=== PATIENT | male | born 1990 | race Caucasian/White ===

== ENCOUNTER 2019-03-08 10:56 | Outpatient (RCR) | payer MEDICARE, MEDICAID, SELFPAY | END 2019-04-02 00:01 | LOC: TPO 10:56 | PROVIDERS: Family Provider Nurse Practitioner; Visit Provider Nurse Practitioner | DX: G80.8 Other cerebral palsy (principal) | CPT/HCPCS: 97162; 97165 ==

== ENCOUNTER → 2019-04-24 13:36 | Outpatient (BNVA) | payer MEDICARE, MEDICAID, SELFPAY | PROVIDERS: Family Provider Nurse Practitioner; PCP Nurse Practitioner; Visit Provider Psychiatry & Neurology Neurology | DX: G80.1 Spastic diplegic cerebral palsy (principal) | CPT/HCPCS: 99212 ==

== ENCOUNTER → 2019-10-23 09:51 | Outpatient (BNVA) | payer MEDICARE, MEDICAID, SELFPAY | PROVIDERS: Family Provider Nurse Practitioner; PCP Nurse Practitioner; Visit Provider Nurse Practitioner | DX: E53.8 Deficiency of other specified B group vitamins (principal); F43.12 Post-traumatic stress disorder, chronic | CPT/HCPCS: 80053; 82607; 85025 ==

== ENCOUNTER → 2020-06-11 10:56 | Outpatient (BNVA) | payer MEDICARE, MEDICAID, SELFPAY | PROVIDERS: Family Provider Nurse Practitioner; PCP Nurse Practitioner; Visit Provider Nurse Practitioner | DX: R00.2 Palpitations (principal); E53.8 Deficiency of other specified B group vitamins; G80.8 Other cerebral palsy; J30.1 Allergic rhinitis due to pollen; M81.0 Age-related osteoporosis without current pathological fracture; K59.01 Slow transit constipation; H61.23 Impacted cerumen, bilateral | CPT/HCPCS: 80053; 81000; 84443; 85025 ==

== ENCOUNTER → 2020-07-07 11:47 | Outpatient (BNVA) | payer MEDICARE, MEDICAID, SELFPAY | PROVIDERS: Family Provider Nurse Practitioner; PCP Nurse Practitioner; Visit Provider Nurse Practitioner Family | DX: L72.9 Follicular cyst of the skin and subcutaneous tissue, unspecified (principal) | CPT/HCPCS: 87070; 87075; 87205 ==

== ENCOUNTER → 2020-10-27 09:04 | Outpatient (BNVA) | payer MEDICARE, MEDICAID, SELFPAY | PROVIDERS: Family Provider Nurse Practitioner; PCP Nurse Practitioner; Visit Provider Nurse Practitioner | DX: E53.8 Deficiency of other specified B group vitamins (principal); Z13.6 Encounter for screening for cardiovascular disorders; G80.8 Other cerebral palsy; M81.0 Age-related osteoporosis without current pathological fracture; J30.1 Allergic rhinitis due to pollen; H61.23 Impacted cerumen, bilateral; K59.01 Slow transit constipation; Z11.1 Encounter for screening for respiratory tuberculosis; R32 Unspecified urinary incontinence | CPT/HCPCS: 80053; 80061; 82607; 84443; 85025; 86580 ==

== ENCOUNTER → 2020-10-29 09:34 | Outpatient (BNVA) | payer MEDICARE, MEDICAID, SELFPAY | PROVIDERS: Family Provider Nurse Practitioner; PCP Nurse Practitioner; Visit Provider Nurse Practitioner | DX: G80.9 Cerebral palsy, unspecified (principal) | CPT/HCPCS: 99213 ==

== ENCOUNTER 2021-01-26 18:06 | Emergency (ER) | payer MEDICARE, MEDICAID, SELFPAY ==
[2021-01-26 18:22] VITALS: BP 130/91; PULSE 104; RESP 19; TEMP 36.9; O2SAT 95; BMI 22.3
--- NOTE | 2021-01-26 18:30 | XRR_ITS ---
PROCEDURE INFORMATION: Exam: XR Right Knee Exam date and time: 01/26/2021 6:30 PM Age: 30 years old Clinical indication: Injury or trauma; Fall; Dislocation; Patella or knee; Injury date: 01/26/2021; Injury details: Transferring and right leg got caught TECHNIQUE: Imaging protocol: XR Right knee. Views: 1 or 2 views. COMPARISON: No relevant prior studies available. FINDINGS: Bones/joints: Lateral dislocation of the patella. Osseous structures are intact without evidence of fracture. Soft tissues: Normal. XR/XR knee RT 1-2V 04691 IMPRESSION: Lateral dislocation of the patella. Radiation Dose CTDIVOL = (mGy): DLP = (mGy-cm)
--- NOTE | 2021-01-26 18:49 | W.ED.EXTPRO ---
HPI - Extremity Problem General: Chief complaint: Extremity Injury, Lower Stated complaint: KNEE DISLOCATION Time Seen by Provider: 01/26/21 18:25 Source: EMS and other Mode of arrival: EMS Limitations: altered mental status History of Present Illness: HPI Narrative: 30-year-old male with history of cerebral palsy who is here with caregiver states he was transferring him in the bed and patient started having pain and pointing to his knee he does have a patellar dislocation to his right knee patient's not ambulatory due to spasticity with his CP patient is nonverbal no history is available from patient patient had no fall or any other injuries per caregiver Review of Systems General: Reports: ROS unobtainable due to mental status PFSH ED PFSH: Medical History Cerebral palsy Cerebral palsy, quadriplegic Dependence on care provider Incontinence Mental disability Osteoporosis Seasonal allergic rhinitis due to pollen Slow transit constipation Vitamin B12 deficiency Wheelchair dependence Surgical History History of release of tendon Wrist and ankles caregiver unsure date Family History Other Unknown family medical history Social History Smoking and tobacco status: never smoked Second hand smoke exposure: No Smoking risk assessment/counseling performed?: No Alcohol intake: never Desire information about alcohol rehabilitation?: No Counseling given: No Desire information about substance/drug rehabilitation?: No Counseling given: No Caregiver/support person: Yes Lives independently: No (Wheel Chair) Household members: other Housing: House Marital status: Single Number of children: 0 Number of grandchildren: 0 service: No Current occupational status: disabled History of recent travel: No Sexually active: No Current gender identity: Male Physical Exam Const: COMMON NORMALS: no acute distress; negative for patient oriented x3 HENMT: COMMON NORMALS: normocephalic and atraumatic HEAD & SCALP: normocephalic and atraumatic Eye: COMMON NORMALS: Equal, round and reactive pupils present and EOMs intact bilaterally PUPIL: Yes Equal, round and reactive pupils present Neck/C-Spine: COMMON NORMALS: full ROM and supple Chest: COMMONS NORMALS: normal inspection of the chest and normal palpation of entire chest wall Resp: COMMON NORMALS: normal respiratory effort, No retractions, No use of accessory muscles and clear to auscultation bilaterally AUSCULTATION: clear to auscultation bilaterally Cardio: COMMON NORMALS: regular rate, regular rhythm and No murmurs present (Cardio) RATE: regular rate RHYTHM: regular rhythm GI: COMMON NORMALS: Normal to inspection, nondistended, normoactive bowel sounds present, Soft to palpation, non-tender and no masses PALPATION: Yes Soft to palpation Extremity: COMMON NORMALS: full ROM NARRATIVE EXTREMITY EXAM: Patella dislocation to right knee distal pulses intact patient does have spasticity in his extremities from his cerebral palsy Neuro: COMMON NORMALS: no focal motor deficits; negative for patient oriented x3 Psych: COMMON NORMALS: cooperative; negative for mental status grossly normal and negative for Normal thought process present THOUGHT PROCESS: abnormal Skin: COMMON NORMALS: no rashes or lesions noted and no wounds GENERAL SKIN EXAM: no rashes or lesions noted Procedures Orthopedic Joint Reduction Joint #1: Time Out Performed: Yes Side: right Joint Reduction Location: knee/patella Technique used: traction/counter-traction Post-reduction neuro exam: intact Post-reduction vascular: intact Post Reduction X-Ray Obtained: Yes Post Reduction X-Ray Results: reduced Splint Applied: No Patient Tolerated Procedure: well Course Vital Signs: Vital signs: Vital Signs Temperature 98.4 F 01/26/21 18:22 Pulse Rate 104 H 01/26/21 18:22 Respiratory Rate 19 H 01/26/21 18:22 Blood Pressure 130/91 01/26/21 18:22 Pulse Oximetry 95 01/26/21 18:22 MDM - Extremity (Nontraumatic) MDM Narrative: Medical decision making narrative: Patient presents with a patella dislocation I relocated in the ER. He has a knee brace at home that he is to wear. We will give him Ortho PDX follow-up he is stable for discharge. Discharge Plan Discharge Patient Disposition: Home Clinical Impression: Closed dislocation of patella Qualifiers: Encounter type: initial encounter Laterality: right Qualified Code(s): S83.004A - Unspecified dislocation of right patella, initial encounter Condition: Stable Prescriptions: No Action (DME) Support stander repair See Rx Instructions .Route .MEDSUPPLY Qty: 1 RF: 0 baclofen 10 mg tablet See Rx Instructions PO .am Qty: 60 RF: 5 calcium carbonate-vitamin D3 [Oyster Shell Calcium-Vit D3] 500 mg(1,250mg) -200 unit tablet 1 tab PO BID Qty: 60 RF: 5 cyanocobalamin (vitamin B-12) 1,000 mcg/mL solution 1,000 mcg IM .Monthly Qty: 1 RF: 5 famotidine [Pepcid] 20 mg tablet 20 mg PO BID Qty: 60 RF: 5 guaifenesin [Mucinex] 600 mg tablet extended release 12hr 600 mg PO BID PRN (Reason: congestion) Qty: 60 RF: 5 loratadine 10 mg tablet 10 mg PO QDAY Qty: 30 RF: 5 magnesium hydroxide [Milk of Magnesia] 400 mg/5 mL suspension 30 ml PO BID PRN (Reason: constipation) Qty: 450 RF: 5 mineral oil Oil See Rx Instructions .ROUTE .COMPLEX Qty: 1 RF: 5 polyethylene glycol 3350 [Miralax] 17 gram/dose powder 17 g PO DAILY Qty: 510 RF: 5 simethicone 80 mg tablet,chewable 80 mg PO BID Qty: 60 RF: 5 trazodone 50 mg tablet 50 mg PO .at bedtime Qty: 30 RF: 5 (DME) wheelchair/ stroller See Rx Instructions .Route .MEDSUPPLY Qty: 1 RF: 0 acetaminophen [Mapap (acetaminophen)] 325 mg tablet 325 mg PO QID PRN (Reason: pain) Qty: 30 RF: 5 triamcinolone acetonide 0.1 % ointment 1 applic TOPICAL BID 14 Days Qty: 80 RF: 0 (DME) arm brace Misc See Rx Instructions .ROUTE .MEDSUPPLY Qty: 1 RF: 0 (DME) leg brace Misc See Rx Instructions .ROUTE .MEDSUPPLY Qty: 1 RF: 0 Discharge Orders: Discharge ED (Routine); Ordered 01/26/21 Ordered By: Natalia Saravia Referrals: Noemi Chao, [employer] [Primary Care Provider] - Tom Schilling MD [Physician] - 1-3 days Discharge Diet: Advance as tolerated Discharge Activity: Resume usual activity Patient Instructions: Patellar Dislocation (ED) Coding Level of Care Code ED Service Order Dispatcher Chief for Chg Fwd Exam Comprehensive
[2021-01-26] MEDS: LORazepam 2 mg/mL INJ 1 mL 1 MG IM (19:02)
[2021-01-26] MEDS: morphine 4 mg/mL SDV 1 mL IM (19:03)
--- NOTE | 2021-01-26 19:27 | XRR_ITS ---
PROCEDURE INFORMATION: Exam: XR Right Knee Exam date and time: 01/26/2021 7:27 PM Age: 30 years old Clinical indication: Screening exam; RT knee post reduction TECHNIQUE: Imaging protocol: XR Right knee. Views: 1 or 2 views. COMPARISON: CR (LOW EXM, ) 01/26/2021 6:47 PM FINDINGS: Bones/joints: Relocation of the patella within the trochlear groove. No evidence of fracture. Soft tissues: Normal. XR/XR knee RT 1-2V 11037 IMPRESSION: Successful relocation of the patella within the trochlear groove. Radiation Dose CTDIVOL = (mGy): DLP = (mGy-cm)
[2021-01-26 19:29] VITALS: PULSE 80
[2021-01-26 20:06] VITALS: BP 112/77; PULSE 82; RESP 18; O2SAT 99
--- NOTE | 2021-01-26 20:17 | PC.NURSE ---
RIGHT KNEE DISLOCATION REDUCED BY DR HERNANDEZ WITHOUT INCIDENT. CMS INTACT FOLLOWING PROCEDURE.
--- NOTE | 2021-01-27 08:54 | DCPLANNER ---
manager service desk had message to schedule to a follow up appointment for patient with ortho. manager service desk called the ortho clinic, spoke with Tracy, gave clinic patients information. manager service desk was told that patients information would be printed and reviewed. Clinic will call patient with appointment information.
--- NOTE | 2021-02-03 15:29 | DCPLANNER ---
Patient had a follow up appointment scheduled for 01.28.21 with PALMA Birch at [facility] - patient did attend appointment.
== END 2021-01-26 20:10 | disposition home or self-care (01) ==
PROVIDERS: Emergency Provider Emergency Medicine; PCP Nurse Practitioner
DX: S83.004A Unspecified dislocation of right patella, initial encounter (principal); G80.8 Other cerebral palsy; Z99.3 Dependence on wheelchair; Z74.9 Problem related to care provider dependency, unspecified; F79 Unspecified intellectual disabilities
CPT/HCPCS: 27560; 73560; 96372; 99283; J2060; J2270

== ENCOUNTER → 2021-01-28 13:50 | Outpatient (BNVA) | payer MEDICARE, MEDICAID, SELFPAY | PROVIDERS: PCP Nurse Practitioner; Referring Provider Emergency Medicine; Visit Provider Physician Assistant | DX: S83.004A Unspecified dislocation of right patella, initial encounter (principal); X58.XXXA Exposure to other specified factors, initial encounter; M25.461 Effusion, right knee | CPT/HCPCS: 73560 ==

== ENCOUNTER → 2021-07-29 10:28 | Outpatient (BNVA) | payer MEDICARE, MEDICAID, SELFPAY | PROVIDERS: PCP Nurse Practitioner; Visit Provider Nurse Practitioner | DX: Z13.6 Encounter for screening for cardiovascular disorders (principal); E53.8 Deficiency of other specified B group vitamins; M81.0 Age-related osteoporosis without current pathological fracture; G80.8 Other cerebral palsy; J30.1 Allergic rhinitis due to pollen; H61.23 Impacted cerumen, bilateral; G80.9 Cerebral palsy, unspecified; K59.01 Slow transit constipation | CPT/HCPCS: 80053; 80061; 82607; 85025 ==

== ENCOUNTER → 2021-11-08 12:44 | Outpatient (BNVA) | payer MEDICARE, MEDICAID, SELFPAY | PROVIDERS: PCP Nurse Practitioner; Visit Provider Nurse Practitioner | DX: G80.9 Cerebral palsy, unspecified (principal) | CPT/HCPCS: 99212; 99213 ==

== ENCOUNTER → 2022-05-20 10:41 | Outpatient (BNVA) | payer MEDICARE, MEDICAID, SELFPAY | PROVIDERS: PCP Nurse Practitioner; Visit Provider Nurse Practitioner | DX: E53.8 Deficiency of other specified B group vitamins (principal); E55.9 Vitamin D deficiency, unspecified; R00.2 Palpitations; G80.8 Other cerebral palsy; Z13.6 Encounter for screening for cardiovascular disorders; J30.1 Allergic rhinitis due to pollen; M81.0 Age-related osteoporosis without current pathological fracture; K59.01 Slow transit constipation; H61.23 Impacted cerumen, bilateral | CPT/HCPCS: 80053; 80061; 82306; 82607; 84443; 85025 ==

== ENCOUNTER → 2022-11-11 10:57 | Outpatient (BNVA) | payer MEDICARE, MEDICAID, SELFPAY | PROVIDERS: PCP Nurse Practitioner; Visit Provider Nurse Practitioner | DX: E53.8 Deficiency of other specified B group vitamins (principal) | CPT/HCPCS: 80053; 82607; 85025 ==

== ENCOUNTER → 2023-05-03 11:40 | Outpatient (BNVA) | payer MEDICARE, MEDICAID, SELFPAY | PROVIDERS: PCP Nurse Practitioner; Visit Provider Nurse Practitioner | DX: Z13.6 Encounter for screening for cardiovascular disorders (principal); E53.8 Deficiency of other specified B group vitamins; R00.2 Palpitations | CPT/HCPCS: 80053; 80061; 82607; 84443 ==

== ENCOUNTER → 2023-09-12 07:54 | Outpatient (BNVA) | payer MEDICARE, MEDICAID, SELFPAY | PROVIDERS: PCP Nurse Practitioner; Visit Provider Psychiatry & Neurology Neurology | DX: G80.8 Other cerebral palsy (principal); E53.8 Deficiency of other specified B group vitamins | CPT/HCPCS: 99202 ==

== ENCOUNTER → 2023-10-25 10:35 | Outpatient (BNVA) | payer MEDICARE, MEDICAID, SELFPAY | PROVIDERS: PCP Nurse Practitioner; Visit Provider Nurse Practitioner | DX: E55.9 Vitamin D deficiency, unspecified (principal); E53.8 Deficiency of other specified B group vitamins | CPT/HCPCS: 80053; 82306; 82607; 85025 ==

== ENCOUNTER → 2024-09-10 12:45 | Outpatient (BNVA) | payer MEDICARE, MEDICAID, SELFPAY | PROVIDERS: PCP Nurse Practitioner; Visit Provider Psychiatry & Neurology Neurology | DX: G80.8 Other cerebral palsy (principal); R01.1 Cardiac murmur, unspecified; H61.22 Impacted cerumen, left ear; R29.90 Unspecified symptoms and signs involving the nervous system | CPT/HCPCS: 99212 ==

== ENCOUNTER 2024-09-17 09:02 | Outpatient (CLI) | payer MEDICARE, MEDICAID, SELFPAY ==
--- NOTE | 2024-09-17 09:13 | XRR_ITS ---
PROCEDURE INFORMATION: Exam: XR Chest Exam date and time: 09/17/2024 9:49 AM Age: 33 years old Clinical indication: Cough; Choked on food; Additional info: R05.9 - cough, unspecified TECHNIQUE: Imaging protocol: Radiologic exam of the chest. Views: 2 views. COMPARISON: No relevant prior studies available. FINDINGS: Lungs: Small amount of atelectasis and/or pneumonitis left lung base. No other obvious pulmonary abnormalities. Pleural spaces: Unremarkable. No pleural effusion. No pneumothorax. Heart/Mediastinum: Most of the mediastinum projects to the right of midline. This is very likely due to patient rotation. Normal heart size. Diaphragm: Mild elevation of the left hemidiaphragm. Bones/joints: Moderate kyphosis. Moderate scoliosis. Gracile bones. Otherwise, unremarkable. XR/XR chest 2V* [id number] IMPRESSION: 1. Small amount of atelectasis and/or pneumonitis left lung base. 2. Most of the mediastinum projects to the right of midline. This is very likely due to patient rotation. 3. Additional details as above.
[2024-09-17 09:33] LABS: Basophils # 0.1 10^3/uL (0.0-0.1); Basophils % 0.9 %; Eosinophils # 0.2 10^3/uL (0.0-0.8); Eosinophils % 3.2 %; Hematocrit 46.4 % (37-53); Lymphocytes # 1.5 10^3/uL (0.8-4.8); Lymphocytes % 22.1 %; Mean Corpuscular HGB Conc 34.9 g/dL (30-55); Mean Corpuscular Hemoglobin 29.8 pg (27-33); Mean Corpuscular Volume 85.5 fl (82-101); Monocytes # 0.6 10^3/uL (0.2-0.9); Monocytes % 8.5 %; Neutrophils # 4.53 10^3/uL (1.8-7.7); Neutrophils % 64.9 %; Nucleated Red Blood Cells % 0 %; Platelet Count 218 10^3/cmm (157-399); Red Blood Count 5.43 10^6/uL (3.85-5.65); Red Cell Distribution Width 12.3 % (12.1-15.1); White Blood Count 6.97 10^3/uL (3.29-11.43)
[2024-09-17 10:00] LABS: Alanine Aminotransferase 32 U/L (0-41); Albumin Level 4.3 g/dL (3.5-5.2); Alkaline Phosphatase 123 U/L (40-130); Anion Gap 16.4 (5-19); Aspartate Amino Transferase 23 U/L (0-40); Blood Urea Nitrogen 10 mg/dL (6-20); Calcium 9.6 mg/dL (8.5-10.5); Carbon Dioxide 26 mmol/L (22-29); Chloride 102 mmol/L (98-107); Chol HDL Ratio 3.31 mg/dL (1.0-5.00); Cholesterol 139 mg/dL (0-200); Globulin 3.4 g/dL (1.3-4.6); Glucose 202 mg/dL (65-115); HDL Cholesterol 42 mg/dL (60-100); LDL Cholesterol Calculated 65 mg/dL (50-129); Osmolality Calculated 297 mOsm/kg (285-295); Potassium 3.4 mmol/L (3.5-5.1); Sodium 141 mmol/L (136-145); Total Protein 7.7 g/dL (6.6-8.7); Triglycerides 161 mg/dL (0-150); VLDL Cholestrol Calculation 32 mg/dL (0-30)
[2024-09-17 11:38] LABS: Total Bilirubin 1.2 mg/dL (0.15-1.2)
[2024-09-17 11:49] LABS: 25 Hydroxy Vitamin D 37 ng/mL (30-100); Vitamin B12 969 pg/mL (232-1245)
[2024-09-18 10:24] LABS: Estmated Average Glucose 108; Hemoglobin A1C 5.4 % (4.0-6.0)
== END 2024-09-17 09:03 | disposition home or self-care (01) ==
LOC: LAB 09:09
PROVIDERS: PCP Nurse Practitioner; Visit Provider Nurse Practitioner
DX: R05.9 Cough, unspecified (principal); Z13.6 Encounter for screening for cardiovascular disorders; E55.9 Vitamin D deficiency, unspecified; E53.8 Deficiency of other specified B group vitamins; R73.9 Hyperglycemia, unspecified; R91.8 Other nonspecific abnormal finding of lung field; M41.84 Other forms of scoliosis, thoracic region; R93.7 Abnormal findings on diagnostic imaging of other parts of musculoskeletal system
CPT/HCPCS: 36415; 71046; 80053; 80061; 82306; 82607; 83036; 85025

== ENCOUNTER → 2024-12-03 11:07 | Outpatient (BNVA) | payer MEDICARE, MEDICAID, SELFPAY | PROVIDERS: PCP Nurse Practitioner; Visit Provider Internal Medicine Cardiovascular Disease | DX: R01.1 Cardiac murmur, unspecified (principal); M41.9 Scoliosis, unspecified; G80.8 Other cerebral palsy; N39.498 Other specified urinary incontinence; Z99.3 Dependence on wheelchair; R07.9 Chest pain, unspecified; R06.09 Other forms of dyspnea | CPT/HCPCS: 93005; 99203 ==

== ENCOUNTER 2024-12-31 12:14 | Outpatient (CLI) | payer MEDICARE, MEDICAID, SELFPAY ==
--- NOTE | 2024-12-31 12:45 | USCV_ITS ---
Boogie Weber Age: 34 Gender: M : 1990 Exam Date: 12/31/2024 12:41 Ordering Phys: Flo Santiago MD ([email or web address]) Technologist: Exam Location: [facility] [place] Indication: murmur BP: 120 / 70 HR: 80 Rhythm: Sinus Technical Quality: Adequate MEASUREMENTS (Male / Female) Normal Values 2D ECHO LV Diastolic Diameter PLAX 3.3 cm 4.2 - 5.9 / 3.9 - 5.3 cm IVS Diastolic Thickness 1.0 cm 0.6 - 1.0 / 0.6 - 0.9 cm IVS Systolic Thickness 1.2 cm LVPW Diastolic Thickness 1.0 cm 0.6 - 1.0 / 0.6 - 0.9 cm LVPW Systolic Thickness 1.2 cm LVOT Diameter 2.1 cm LV Ejection Fraction 2D Teich 71.0 % LV Ejection Fraction MOD 4C 63.4 % LV Ejection Fraction MOD 2C 71.1 % LV Ejection Fraction 2C AL 71.9 % LA Diameter 3.5 cm RA Systolic Volume 4C AL 14.8 ml RA Systolic Volume 4C MOD 15.2 ml Aorta at Sinotubular Diameter 3.1 cm M-MODE LA Ao Ratio MM 1.1 AV Cusp Separation MM 2.3 cm DOPPLER AV Peak Velocity 134.0 cm/s LVOT Peak Velocity 112.0 cm/s AV Area Cont Eq vti 2.8 cm squared AV Area Cont Eq pk 2.8 cm squared MV Peak Velocity 90.0 cm/s MV Area PHT 5.5 cm squared Mitral E to A Ratio 1.1 TR Peak Velocity 175.0 cm/s TR Peak Gradient 12.3 mmHg TV Peak E Velocity 88.0 cm/s PV Peak Velocity 114.0 cm/s FINDINGS Left Ventricle Normal left ventricular size and systolic function, EF 63%.no regional wall motion abnormalities. Right Ventricle Normal right ventricular size and systolic function. Right Atrium Normal right atrial size. Left Atrium Normal left atrial size. Mitral Valve Structurally normal mitral valve. Aortic Valve Trace aortic valve regurgitation. Tricuspid Valve No gross abnormalities noted Pulmonic Valve No gross abnormalities noted Pericardium No pericardial effusion. Aorta Normal aortic annulus size. IVC Inferior vena cava not visualized. CONCLUSIONS Normal left ventricular size and systolic function, EF 63%. No regional wall motion abnormalities. Trace aortic valve regurgitation. Normal cardiac chamber sizes. There is no pericardial effusion. There are no intracardiac masses. No similar previous studies are available for comparison Dr Flo Santiago MD [facility] (Electronically Signed) Final Date: 31 December 2024 19:09 S
== END 2024-12-31 12:15 | disposition home or self-care (01) ==
LOC: RAD 12:15
PROVIDERS: PCP Nurse Practitioner; Visit Provider Internal Medicine Cardiovascular Disease
DX: R06.09 Other forms of dyspnea (principal)
CPT/HCPCS: 93306

== ENCOUNTER → 2025-03-04 10:45 | Outpatient (BNVA) | payer MEDICARE, MEDICAID, SELFPAY | PROVIDERS: PCP Nurse Practitioner; Visit Provider Internal Medicine Cardiovascular Disease | DX: R01.1 Cardiac murmur, unspecified (principal); M41.9 Scoliosis, unspecified; G80.8 Other cerebral palsy; N39.498 Other specified urinary incontinence; Z99.3 Dependence on wheelchair | CPT/HCPCS: 99213 ==